=== PATIENT | female | born 1975 | race Caucasian/White ===

== ENCOUNTER 2023-09-16 18:22 | Inpatient (IN) | payer BC, SELFPAY ==
[2023-09-16] VITALS (8 sets, daily range): BP systolic 85–149; BP diastolic 64–97; BMI 28.7
[2023-09-16 14:00] LABS: % Basophils 0.4 % (0-2); % Eosinophils 1.5 % (0-6); % Immature Granulocytes 0.5 % (0-0.5); % Lymphocytes 13.5 % (20.5-51.1); % Monocytes 8.3 % (1.7-9.3); % Neutrophils 75.8 % (42.2-75.2); Absolute Eosinophils 0.2 10^3/uL (0-0.7); Absolute Immature Granulocytes 0.1 10^3/uL (0-0.05); Absolute Lymphocytes 1.5 10^3/uL (1.2-3.4); Absolute Monocytes 0.9 10^3/uL (0.1-0.6); Absolute Neutrophils 8.3 10^3/uL (1.4-6.5); Hematocrit 41.1 % (37.0-47.0); Hemoglobin 14.2 g/dL (12.0-16.0); Mean Corp Hgb Conc. 34.5 g/dL (33.0-37.0); Mean Corpuscular Hgb 34.5 pg (27.0-31.0); Mean Platelet Volume 10.8 fL (7.4-10.4); Nucleated Red Blood Cells % 0 %; Platelet Count 249 10^3/uL (130-400); Red Blood Cell Count 4.11 10^6/uL (4.20-5.40); Red Cell Dist. Width 13.9 % (11.5-14.5)
[2023-09-16 14:14] LABS: ALT (SGPT) 21 U/L (0-35); AST (SGOT) 27 U/L (14-36); Alkaline Phosphatase 72 U/L (38-126); Blood Urea Nitrogen 9 mg/dl (7-17); Calcium 8.9 mg/dl (8.4-10.2); Carbon Dioxide 27 mmol/L (22-30); Chloride 102 mmol/L (98-107); Glucose 132 mg/dl (70-99); Potassium 3.9 mmol/L (3.5-5.1); Sodium 134 mmol/L (135-145); Total Bilirubin 0.8 mg/dl (0.2-1.3); eGFR > 60.00
[2023-09-16 14:26] LABS: Troponin I 0.892 ng/ml
[2023-09-16] MEDS: NITROSTAT (SUBLINGUAL) 0.400000000000000022 MG SL (15:37)
--- NOTE | 2023-09-16 15:37 | ED.GENMED ---
History of Present Illness
General
Chief Complaint: Chest Pain
Source: patient
Time Seen by Provider: 09/16/23 15:13
Travel History
Have you had any contact with someone who has COVID-19?: No
Do you have any symptoms of coronavirus? Fever > 100 degrees, chills, cough, shortness of breath, sore throat, loss of taste or smell, muscle aches, or headache?: No
History of Present Illness
History of Present Illness:
47 year old female with past medical history of hypertension and rheumatoid arthritis who presents to ED from her primary care office with concerns for an abnormal EKG as well as chest pain that has been ongoing since 3am Thursday morning described to
be a persistent pain, aching, non-radiating waxing and waning without any specific exacerbating or alleviating factors however over the last 36 hours she notes pain now is more squeezing nature, goes in to both arms, intermittent diaphoresis and
mild nausea. Patient went to [facility] last night but after waiting for 5 hours in the waiting room decided to go home but had a follow up visit with PCP today at 8am. Patient notes a recent colonoscopy this past Thursday and she thought
her symptoms were initially related to this. She states she had 2 polyps removed. Family hx is significant for father have an NE but at unknown age. Patients social history is unremarkable. She denies any hx of smoking. No recent illnesses but notes
RSV in July
Past History
Past History
ED Past Medical History: HTN and Other (RA)
ED Past Surgical History: None
Social History
Tobacco: Non-smoker
Alcohol: Occasional
Drug: None
Personal:
Living: with family
Review of Systems
Review of Systems
All Other Systems: ROS reviewed and negative except as documented in HPI and ROS
Phy Exam
Physical Exam
Physical Exam:
GENERAL: Alert , in no apparent distress
EYE: clear conjunctiva
NECK: Supple
ENT: o/p clr, mmm.
CARDIAC: Regular rate and rhythm, no murmur .
LUNGS: Clear breath sounds bilaterally, no acute respiratory distress, no wheezes/rales/rhonchi
CHEST WALL: no tenderness to palpation
ABDOMEN: Soft, without focal tenderness, no r/g, no cvat
NEUROLOGICAL: Alert and oriented
SKIN: Warm and dry, skin intact.
MUSCULOSKELETAL: No edema, well perfused.
PSYCH: Normal and appropriate interaction.
Scores
Heart Failure Risk
Heart Failure Risk Score: Not Applicable
Heart Score for Chest Pain Patients
STEMI patient?: No
History: Moderately Suspicious
ECG: Nonspecific Repolarization
Age: >45 - <65 years
Risk Factors: 1 or 2 Risk Factors
Troponin: >/= 3 x Normal Limit
Heart Score for Chest Pain Patients: 6
Heart Score Risk: 20.3% MACE over next 6 weeks
Withdrawal Assessment of Alcohol
Withdrawal Assessment Completed?: Not applicable
Course
Orders/Labs/Results
Orders:
Orders
09/16/23 13:41
EKG [Electrocardiogram (*1)] Urgent
Reason for Study: Chest Pain
EKG- Treatment ONCE
09/16/23 13:51
C-Reactive Protein Urgent
Comment: CRP ADDED ON BY FLOOR 4:10PM 09-16-23
Complete Blood Count/With Diff Urgent
Comprehensive Metabolic Panel Urgent
Troponin I Urgent
09/16/23 Dinner
Cholesterol Lowering
At Your Request: Full Participation
Does patient need a safe tray?: No
09/16/23 15:14
Electrocardiogram (*1) Stat
Reason for Study: Other
Other Reason for Exam: chest pain
EKG- Treatment ONCE
CR Chest Portable - 1 View Urgent
Comment:
Reason For Exam: NSTEMI
Reason Study Needs to be Portable: Unable to Transport
09/16/23 15:26
Heparin 4,000 units IV NOW STA
Nitroglycerin Sublingual [Nitrostat (Sublingual)] 0.4 mg SL [id number] PRN
09/16/23 15:30
Heparin 52317 Units/250 ml 25,000 units in 250 ml IV PER PROTOCOL
Weight to be used for heparin protocol in kilograms (kg):: 66.6
Protocol:: Cardiac Tx/Acute Coronary
PTT Goal Range to be used:: PTT 73 to 111 seconds
Order type:: Initial
INITIAL Infusion Dose (UNITS/KG/hr) & then follow protocol:: 15 units/kg/hr
Infusion Dose in UNITS/hr & then follow protocol (UNITS/hr):: 1,000
INFUSION RATE in mL/hr & then follow protocol (mL/hr):: 10
PTT less than or equal to 64 seconds:: Increase rate by 200 units/hr (+ 2 mL/hr)
PTT 64.1 to 72.9 seconds:: Increase rate by 100 units/hr (+ 1 mL/hr)
PTT 73 to 111 seconds:: Target Range. No change in rate.
PTT 111.1 to 130.9 seconds:: Decrease rate by 100 units/hr (- 1 mL/hr)
PTT 131 to 199.9 seconds:: HOLD for 1 hr. Then decrease rate by 200 units/hr (- 2 mL/hr)
PTT greater than or equal to 200 seconds:: HOLD for 2 hrs & Notify Provider. Then decrease by 200 units/hr (-
2 mL/hr)
Lab follow-up:: Each change, PTT q6h until 2 consecutive are therapeutic. Then PTT
daily.
09/16/23 15:37
PTT Urgent
Prothrombin Time Urgent
09/16/23 15:47
0.9% Sodium Chloride 1000 ml [Nss] 1,000 ml IV BOLUS
09/16/23 15:50
Echo 2D MMode Color/Doppler Urgent
Reason for Study: epigastric pain, abnormal troponin
09/16/23 16:05
CT Chest Pe Study Urgent
Comment:
Reason For Exam: elevated trop, chest pain
Aspirin Chewable [Low Strength Aspirin] 324 mg PO NOW STA
09/16/23 16:09
Add On- LAB Routine
Tests Added?: crp
09/16/23 17:19
Admit/Transfer Patient As Directed
Co-Sign Provider:
Level of Care: Inpatient admission
Assign to:: IVU
Physician / Group: Richie
Diagnosis: NSTEMI
Reason for Hospitalization: heparin drip, cardiac cath
Expected length of stay greater than two midnights?: Yes
ELOS- Estimated Length of Stay in days: 3
I certify the patient meets the requirements for IP care: Yes
09/16/23 17:26
Code Status As Directed
Resuscitation Status: Full Code
09/16/23 19:05
Acetaminophen [Tylenol] 650 mg PO Q4HPRN PRN
09/16/23 19:05
Heparin Protocol- PTT Orders As Directed
PTT per Heparin protocol: -Obtain CBC and baseline PTT - if not already collected.
-Obtain PTT 6 hours from start of infusion. Then, every 6 hours until 2 consecutive
PTT's are therapeutic. Then, PTT Daily.
-With each rate change, obtain PTT every 6 hours until 2 consecutive PTT's are
therapeutic. Then, PTT Daily.
Activity As Directed
Activity Level: Out of Bed-Early Mobility
With Assistance
I&O [Intake/ Output] As Directed
Frequency: q12h
Notify MD As Directed
Notify physician if: PTT is greater than or equal to 200.
Vital Signs As Directed
Frequency: Per unit guidelines
Weight As Directed
Frequency: Daily
09/16/23 19:14
Tramadol HCl [Ultram] 37.5 mg PO DAILYPRN PRN
09/16/23 20:00
EKG [Electrocardiogram (*1)] Routine
Reason for Study: Abnormal EKG
Troponin I Q6H
Buspirone [BuSPAR] 5 mg PO BID
09/16/23 22:00
Gabapentin [Neurontin] 300 mg PO HS
Loratadine [Claritin] 10 mg PO HS
Montelukast Sodium [Singulair] 10 mg PO HS
Zolpidem Tartrate [Ambien] 10 mg PO HS
09/16/23 22:35
PTT Urgent
Nursing to Place Non Medication Order As Directed
Physician Order: PTT 6 hours after initial start of Heparin infusion
Above order entered?: Yes
09/17/23 02:00
Troponin I Q6H
09/17/23 06:00
EKG [Electrocardiogram (*1)] IN AM
Reason for Study: Abnormal EKG
NPO
Allow oral meds: Yes
Allow clear liquids: No
Basic Metabolic Panel IN AM
Complete Blood Count/No Diff IN AM
Hgba1c [Glycohemoglobin (HgbA1c)] IN AM
Lipid Profile [Cardiovascular Evaluation] IN AM
09/17/23 08:00
Aspirin Chewable [Low Strength Aspirin] 81 mg PO DAILY
09/18/23 06:00
Complete Blood Count/No Diff Q2D
Comment: notify provider: Platelet count < 130,000 or decrease by 50% from baseline
09/20/23 06:00
Complete Blood Count/No Diff Q2D
Comment: notify provider: Platelet count < 130,000 or decrease by 50% from baseline
09/22/23 06:00
Complete Blood Count/No Diff Q2D
Comment: notify provider: Platelet count < 130,000 or decrease by 50% from baseline
09/24/23 06:00
Complete Blood Count/No Diff Q2D
Comment: notify provider: Platelet count < 130,000 or decrease by 50% from baseline
09/26/23 06:00
Complete Blood Count/No Diff Q2D
Comment: notify provider: Platelet count < 130,000 or decrease by 50% from baseline
09/28/23 06:00
Complete Blood Count/No Diff Q2D
Comment: notify provider: Platelet count < 130,000 or decrease by 50% from baseline
09/30/23 06:00
Complete Blood Count/No Diff Q2D
Comment: notify provider: Platelet count < 130,000 or decrease by 50% from baseline
10/02/23 06:00
Complete Blood Count/No Diff Q2D
Comment: notify provider: Platelet count < 130,000 or decrease by 50% from baseline
Abnormal Lab Results
09/16/23 09/16/23
13:51 15:37
WBC 11.0 H 10^3/uL
(4.8-10.8)
RBC 4.11 L 10^6/uL
(4.20-5.40)
MCV 100.0 H fL
(81.0-99.0)
MCH 34.5 H pg
(27.0-31.0)
MPV 10.8 H fL
(7.4-10.4)
Abs Immat Gran (auto) 0.1 H 10^3/uL
(0-0.05)
Absolute Neuts (auto) 8.3 H 10^3/uL
(1.4-6.5)
Absolute Monos (auto) 0.9 H 10^3/uL
(0.1-0.6)
Neutrophils % 75.8 H %
(42.2-75.2)
Lymphocytes % 13.5 L %
(20.5-51.1)
APTT 23.3 L Sec
(23.4-35.0)
Sodium 134 L mmol/L
(135-145)
Glucose 132 H mg/dl
(70-99)
Troponin I 0.892 H* ng/ml
C-Reactive Protein 55.50 H mg/L
(0.0-10.00)
09/16/23 13:51
09/16/23 13:51
Vital Signs
Initial and Last Documented VS:
Initial Vital Signs
Temp Pulse Resp BP Pulse Ox
98.4 F 84 18 147/93 99
09/16/23 13:42 09/16/23 13:42 09/16/23 13:42 09/16/23 13:42 09/16/23 13:42
Last Documented Vital Signs
Temp Pulse Resp BP Pulse Ox
98.3 F 88 18 104/79 98
09/16/23 19:30 09/16/23 18:30 09/16/23 19:30 09/16/23 18:27 09/16/23 19:30
Grinding Operator consulted with Physician
Grinding Operator consulted with physician?: Yes
Name of Physician Consulted: Jaime
MDM/Problems Addressed
Differential Diagnosis Includes:
unstable angina, NSTEMI, STEMI, PE
MDM/Problems Addressed:
47F presenting to the ED from PCP office with concern for anginal symptoms. Patient EKG done in triage shows diffuse t-wave inversions in precordial leads. She notes 7/10 pain currently and labs initiated from triage reveal an elevated troponin at
greater than 0.8. Cardiology was notified and coming to the emergency department to evaluate the patient. In the meantime patient to be given sublingual nitroglycerin due to the continued 7 out of 10 pain as well as heparin bolus and drip ordered.
Holding aspirin due to patient's listed ibuprofen allergy with anaphylaxis. Coags, chest x-ray ordered.
Chronic conditions affecting care: HTN
*Pulse Oximetry
Patient hypoxic: no
*EKG
Interpreted by ED Provider?: Yes
Comparison EKG: no comparison EKG present
Heart Rate: 86
Rate: normal
Rhythm: sinus
[place]: normal axis
Ischemia: T-wave inversion (precordial leads)
*Supply Chain Coordinator Interpretation
Rate: normal
Rhythm: sinus
*Critical Care Note
Total Time (30-74mins, 75-104mins- exclusive of procedures): 35
comment:
Critical care statement: A total of 35 minutes of critical care time was provided for this patient. This includes management of unstable vital signs, evaluation of the patient at bedside, reviewing the patient's pertinent medical records, discussion
with consultants, review of old EKGs and review of pertinent medical records. This time with separate from time utilized to perform the aforementioned documented procedures
Comment
Comment:
Following 1 sublingual nitroglycerin patient's blood pressure dropped significantly. Will hold future nitroglycerin as well as gave patient 1 L IV fluids to support blood pressure. Aspirin was ordered at cardiology recommendation as she has
tolerated Pepto-Bismol in the past.
Patient Management
Discussion with other providers: Hospitalist and Public Safety Director
Escalation/DeEscalation of care consider admission/obs:
Patient was seen by cardiology and they are recommending obtaining a CTA of the chest to rule out PE. Possible myocarditis given recent RSV infection. They are ordering a stat echocardiogram. Recommend admission to hospitalist service. They are
in agreement with medications given and state it is okay to give aspirin as patient has taken Pepto-Bismol in the past. Will notify hospitalist team.
ED Attending Note
-
Portions of this chart may have been created with voice recognition software.� Occasional wrong word or��sound alike� substitutions may have occurred due to the inherent limitations of voice recognition software.
Discharge Plan
Departure
Patient Disposition: Admit
Date of Disposition: 09/16/23
Time of Disposition: 16:07
Presentation/result/management discussed w/ accepting MD/DO: Hospitalist
Discharge Problem:
Acute non-ST elevation myocardial infarction (NSTEMI)
Interventions
Interventions:
*Risk Screen - Suicide Last Done: 09/16/23 20:53
*General Assessment Last Done: 09/16/23 13:42
*Neglect/Abuse Screening Last Done: 09/16/23 13:42
ED- Fall Risk Assessment Last Done: 09/16/23 15:20
*ED COVID-19 Vaccine History Last Done: 09/16/23 20:53
*Nursing Disposition Last Done: 09/16/23 18:52
ED- Cardiac Assessment Last Done: 09/16/23 15:20
Discharge Date and Time
Discharge Date/Time: 09/16/23 18:53
[2023-09-16] MEDS: NSS 1000 IV (15:48)
[2023-09-16 15:55] LABS: INR 1.07; PT 13.8 Sec (11.4-14.6)
[2023-09-16 15:56] LABS: APTT 23.3 Sec (23.4-35.0)
--- NOTE | 2023-09-16 16:05 | CON.CAR ---
Addendum entered and electronically signed by Avinash Maravilla MD 09/16/23 16:36:
Also initial pain radiated to back, will add on lipase as well.
Addendum entered and electronically signed by Avinash Maravilla MD 09/16/23 16:34:
I saw and examined the patient.
The GLASS BREAKER note was reviewed and I agree with the note.
Comment: 47-year-old female with a past medical history of rheumatoid arthritis and hypertension presents for evaluation of several days of constant mid substernal chest pain. It is worse with deep inspiration and palpation. However, not worse
with exertion or lying flat. Of note, she had a colonoscopy on Thursday and had discomfort in her abdomen following the procedure. But then was able to go line dancing on Thursday before pain began. She does have a family history of premature
coronary artery disease in her father at 50 years old. Additionally, she had RSV in July. While NSAID allergy is listed, she takes Pepto-Bismol routinely without any issue. She took it for this issue in fact without any relief. While in the
room, she had just received nitroglycerin and began to feel acutely dizzy like she would pass out. Blood pressure dropped from 140s to 80s. She recovered by placing in Trendelenburg and giving a volume bolus. Interestingly, after nitroglycerin
her reproducible pain in the mid substernal area on initial exam improved and came from a 7-8 2 out of 10. She also reports she had not been moving around as much once the pain began. On physical exam she appears in mild distress, lungs are clear
to auscultation regular rate and rhythm no murmur rubs or gallops were appreciated. She did initially have exquisite tenderness in the xiphoid area but this improved with nitro. No abdominal tenderness. No extremity edema. EKG showed small T
wave inversions anteriorly, they did not seem deep and symmetric. Additionally, troponin was elevated at 0.892. Differential diagnosis of her symptoms remains broad. Given the pleuritic nature and significant drop in blood pressure with
nitroglycerin, PE should be considered. Given recent illness with RSV, perimyocarditis could be playing a role. Echo will be done immediately and CRP added. Remaining on the differential diagnosis is ACS. She has been started on a heparin drip
and will be given aspirin. Risk factors of family history, hypertension, and rheumatoid arthritis. She may need catheterization tomorrow if no clear etiology of symptoms. Will keep n.p.o. in that event.
Will follow.
Original Note:
Consultation
Consultation Request
Date/Time Consultation Requested: 09/16/23 153
Date/Time Consultation Performed: 09/16/23 1540
Requesting Provider: Kain PRINCE
Performing Provider: Hanh BLACKMON for Dr. Maravilla
Reason for Consultation: chest discomfort, abnormal troponin and EKG
Medical History
-
Chief Complaint: chest/abdominal pain, troponin elevation, EKG abnormality
History of Present Illness:
47 y/o female with RA and hypertension who is here for upper abdominal/chest discomfort. She had a routine colonoscopy Thursday. Then Thursday, after line-dancing, she developed upper abdominal/chest discomfort afterward. Then yesterday around 4 PM, she
also had a squeezing feeling at the top of her arms with clammy feeling. Discomfort went through to her back. Chest discomfort was pleuritic. She went to [facility] ER, but evaluation took too long and she left. She went to her PCP this AM and
EKG was abnormal and she was sent back into the ER. In the ER, on arrival, she had chest discomfort. She reports chest discomfort has been pleuritic, also worse to palpation initially. She was given nitro, which dropped her blood pressure and she
had symptomatic hypotension, which improved with Trendelenburg positioning and IV fluids. Her discomfort improved. Heparin drip was started in ER. ASA to be given now. There was initial concern since allergy to ibuprofen, but she denies any known
history of ASA allergy and regularly takes Pepto-Bismol without issue. Trop in ER 0.892. EKG with anterior t-wave inversions. Of note, patient had RSV recently.
Past Medical History
Past Medical History: HTN and Other (RA)
Social History
Tobacco: Non-Smoker
Family History
Family History: Early CAD (dad DC age 50)
Allergies / Home Medications
Allergy/AdvReac Type Severity Reaction Status Date / Time
ibuprofen Allergy Anaphylaxis Verified 09/16/23 13:41
Medication Instructions Recorded Confirmed Type
buspirone 5 mg tablet 5 mg PO BID 09/16/23 09/16/23 History
eszopiclone 2 mg tablet (Lunesta) 2 mg PO HS 09/16/23 09/16/23 History
fexofenadine 60 mg tablet (Annie 60 mg PO HS 09/16/23 09/16/23 History
Allergy)
gabapentin 300 mg capsule 300 mg PO HS 09/16/23 09/16/23 History
golimumab 50 mg/0.5 mL 50 mg SC QMONTH 09/16/23 09/16/23 History
subcutaneous pen injector (Simponi)
levonorgestrel 0.15 mg-ethinyl 1 tab PO DAILY 09/16/23 09/16/23 History
estradiol 0.03 mg tablet ([place]
28)
methotrexate sodium 2.5 mg tablet 10 mg PO TUTH 09/16/23 09/16/23 History
montelukast 10 mg tablet 10 mg PO HS 09/16/23 09/16/23 History
(Singulair)
tramadol 37.5 mg-acetaminophen 325 1 tab PO DAILYPRN PRN moderate 09/16/23 09/16/23 History
mg tablet pains
Review of Systems
-
History Source: Patient
All other systems: Negative unless noted
Cardiac: Chest Pain and Diaphoresis
Abdomen/GI: Abdominal Pain
Physical Exam
Vital Signs
Temp Pulse Resp BP Pulse Ox
98.4 F 75 14 124/67 90
09/16/23 13:42 09/16/23 15:46 09/16/23 15:46 09/16/23 15:46 09/16/23 15:46
Lab Results
09/16/23 13:51
09/16/23 13:51
Troponin I 0.892 ng/ml H* 09/16/23 13:51
Physical Exam
General: Well Developed, Well Nourished and No Apparent Distress
HEENT: Normocephalic
Respiratory: Clear and Non Labored Respirations
Cardiac: Regular Rhythm
GI: Tender (initially to touch)
Skin: Warm and Dry
Neuro: AO x 3
Psych: Calm
Impression / Plan
-
Chest/abdominal discomfort:
-initially noted with palpation, and inspiration, but then had a nitro and felt improved. Of note, nitro dropped BP significantly as noted in detail.
-check echo and CTA now
Abnormal troponin:
-etiology is not yet clear
-as above, check echo, CTA.
-heparin drip initiated while w/u being done. This requires intensive monitoring for toxicity. ASA to be given now. Continue daily.
-trend to peak. May need cath depending on above findings. Will check lipids, A1C.
RA:
-on medical therapy
HTN:
-on nebivolol as OP
-continue and monitor
Data Reviewed
-
EKG: Tracing Personally Visualized and interpreted (SR with t wave inversions anteriorly)
Radiology: Report Reviewed by me (CXR: No acute cardiopulmonary process.)
Medical Tests (Nuc Med, Echo etc): Other (ordered and pending in ER)
Labs: Labs Reviewed by me
[2023-09-16] MEDS: LOW STRENGTH ASPIRIN 324 MG PO (16:14)
[2023-09-16] MEDS: HEPARIN 4000 UNITS IV (16:34)
[2023-09-16] MEDS: HEPARIN 25000 UNITS/250 ML IV (16:35)
--- NOTE | 2023-09-16 17:31 | HPS.HSE ---
Addendum entered and electronically signed by Anthony Quiroz MD 09/16/23 18:21:
I saw and examined the patient.
The PRODUCTION MECHANIC TIN CANS or PA's note was reviewed and I agree with the note.
Comment: CVS: S1-S2 normal
Chest: CTA B/L
Abdomen: Soft, NT / Bowel sounds present
Extremities: No edema, normal pulses
RETORT FURNACE HELPER: Non focal exam
#Chest Pain with Elevated Troponin, possible NSTEMI
Positive troponin is elevated-trend
-Await PE study especially the patient is on control pills
-Continue heparin drip
-Cardiology valuation.
-If CT PE study is negative may need a cath tomorrow. N.p.o. after midnight discussed with the patient
#Essential Hypertension
-Patient developed hypotension following nitro
-Monitor BP closely
#Rheumatoid Arthritis
-Patient is maintained on methotrexate and Simponi as outpatient
#Anxiety/Insomnia
-Continue BuSpar and Lunesta
# Control use-advised patient to talk to her delicatessen department manager and come off of this
#DVT proph: Heparin drip
Discussed with family at bedside
#Code Status: Full Code
Original Note:
Family Physician
-
Family Physician: Nicolas Garza IV, MD
Chief Complaint
-
Chest Pain
History of Present Illness
Patient is an 47 y/o female past medical history of hypertension and rheumatoid arthritis who presents with chest pain. Patient reports pain started two nights ago. She states it waxes and wanes, but doesn't to have any aggravating or alleviating
factors. Last night she had an episode described a tightness across her chest and her arms. She notes with this episode she had some shortness of breath, and describes diaphoresis. She denies any similar episodes in the past. She denies any prior
history of coronary artery disease, myocardial infarction or pulmonary embolism.
Medical History
Past Medical History
Past Medical History: Reports Other
Additional Past Medical History:
Essential Hypertension
Rheumatoid Arthritis
Anxiety/Insomnia
Past Surgical History: Reports None
Social History
Tobacco: Non-smoker
Alcohol: Occasional
Family History
Family History: Other (Father: CAD with stent at 50)
Allergies / Home Medications
Allergies reflects when Allergies were last updated in [facility].
Home Medications with original date entered in [facility]
Allergy/Medication List:
Allergies
Allergy/AdvReac Type Severity Reaction Status Date / Time
ibuprofen Allergy Anaphylaxis Verified 09/16/23 13:41
Home Medications
buspirone 5 mg tablet 5 mg PO BID 09/16/23
eszopiclone 2 mg tablet (Lunesta) 2 mg PO HS 09/16/23
fexofenadine 60 mg tablet (Annie Allergy) 60 mg PO HS 09/16/23
gabapentin 300 mg capsule 300 mg PO HS 09/16/23
golimumab 50 mg/0.5 mL subcutaneous pen injector (Simponi) 50 mg SC QMONTH 09/16/23
levonorgestrel 0.15 mg-ethinyl estradiol 0.03 mg tablet ([place] 28) 1 tab PO DAILY 09/16/23
methotrexate sodium 2.5 mg tablet 10 mg PO TUTH 09/16/23
montelukast 10 mg tablet (Singulair) 10 mg PO HS 09/16/23
tramadol 37.5 mg-acetaminophen 325 mg tablet 1 tab PO DAILYPRN PRN moderate pains 09/16/23
Review of Systems
-
A 12 point ROS was completed and negative except as noted: Yes
Constitutional: Denies Fever or Chills
Respiratory: Denies Cough or Trouble Breathing
Cardiac: Denies Chest Pain or Palpitations
Physical Exam
Vital Signs
Vital Signs
Temp Pulse Resp BP Pulse Ox
98.4 F 89 19 126/71 97
09/16/23 13:42 09/16/23 16:45 09/16/23 16:45 09/16/23 16:17 09/16/23 16:45
Physical Exam
General: Comfortable and Conversant
HEENT: Anicteric and Moist mucous membranes
Respiratory: Clear and Non Labored Respirations
Cardiac: S1/S2 and Regular Rhythm
GI: Soft and Non Tender
Rectal: Deferred by Provider
Musculoskeletal: No Clubbing, No Cyanosis and No Edema
Skin: Warm and Dry
Neuro: Awake, Alert, Oriented and Nonfocal/grossly intact
Laboratory Results
-
09/16/23 13:51
09/16/23 13:51
Laboratory Results
PT 13.8 Sec (11.4-14.6) 09/16/23 15:37
INR 1.07 09/16/23 15:37
APTT 23.3 Sec (23.4-35.0) L 09/16/23 15:37
Total Bilirubin 0.8 mg/dl (0.2-1.3) 09/16/23 13:51
AST 27 U/L (14-36) 09/16/23 13:51
ALT 21 U/L (0-35) 09/16/23 13:51
Alkaline Phosphatase 72 U/L (38-126) 09/16/23 13:51
Troponin I 0.892 ng/ml H* 09/16/23 13:51
Data Reviewed
-
Diagnostic Radiology: Report Reviewed by me
Lab Data: Labs Reviewed by me
Impression/Plan
-
Chest Pain with Elevated Troponin, possible NSTEMI
-Consult Cardiology
-Await PE study
-Continue heparin drip
Essential Hypertension
-Patient developed hypotension following nitro
-Monitor BP closely
Rheumatoid Arthritis
-Patient is maintained on methotrexate and Simponi as outpatient
Anxiety/Insomnia
-Continue BuSpar and Lunesta
DVT proph: Heparin drip
Code Status: Full Code
[2023-09-16] MEDS: AMBIEN 10 MG PO (21:41)
[2023-09-16] MEDS: CLARITIN 10 MG PO (21:41)
[2023-09-16] MEDS: NEURONTIN 300 MG PO (21:42)
[2023-09-16] MEDS: SINGULAIR 10 MG PO (21:42)
[2023-09-16 22:25] LABS: APTT 53.8 Sec (23.4-35.0)
[2023-09-16 22:36] LABS: Troponin I 0.635 ng/ml
[2023-09-17] VITALS (12 sets, daily range): BP systolic 106–134; BP diastolic 52–84; BMI 28.1
--- NOTE | 2023-09-17 00:34 | PTCARENOTE ---
Received pt from ED. AOX3. Oriented to unit. at bedside. Heparin gtt infusing at 10 units/hr. EKG obtained. Pt currently has no c/o pain/discomfort. Aware of NPO status after midnight. Currently resting in bed; call geri w/in reach.
[2023-09-17 06:03] LABS: Troponin I 0.407 ng/ml
[2023-09-17 06:11] LABS: APTT 86.6 Sec (23.4-35.0)
[2023-09-17 06:29] LABS: Hematocrit 35.2 % (37.0-47.0); Hemoglobin 12.3 g/dL (12.0-16.0); Mean Corp Hgb Conc. 34.9 g/dL (33.0-37.0); Mean Corpuscular Hgb 34.7 pg (27.0-31.0); Mean Corpuscular Volume 99.4 fL (81.0-99.0); Mean Platelet Volume 11.4 fL (7.4-10.4); Platelet Count 216 10^3/uL (130-400); Red Blood Cell Count 3.54 10^6/uL (4.20-5.40); Red Cell Dist. Width 13.7 % (11.5-14.5); White Blood Cell Count 7.8 10^3/uL (4.8-10.8)
[2023-09-17 06:54] LABS: Blood Urea Nitrogen 7 mg/dl (7-17); Calcium 8.3 mg/dl (8.4-10.2); Carbon Dioxide 23 mmol/L (22-30); Chloride 108 mmol/L (98-107); Estimated Creatinine Clearance 73 ml/min; Glucose 85 mg/dl (70-99); HDL Cholesterol 59 mg/dl; LDL Cholesterol, Calculated 100 mg/dl; Potassium 4.2 mmol/L (3.5-5.1); Sodium 134 mmol/L (135-145); Total Cholesterol 180 mg/dl (50-199); Triglyceride 107 mg/dl (10-149); Very Low Density Lipoprotein 21 mg/dl (0-30); eGFR > 60.00
[2023-09-17] MEDS: LOW STRENGTH ASPIRIN 81 MG PO (07:55)
--- NOTE | 2023-09-17 08:17 | W.PN.CD ---
Today's Communication / Plan
-
cath today
add lipitor 40
continue [facility]
Impression / Plan
-
NonSTEMI:
-trop #1 0.6, then second 0.4. ECG with anterior Tw inversions
- Hx consistent with Plaque rupture Savannah michel. Went to [facility] ER, got ECG and sent out to waiting room then got upset with wait and left AMA
-ECHO showed normal LV function and no valve disease
- LDL 100. Adding Atorvastatin 40qd
- Discussed options including cath today and waiting another 24 hrs then stress. I strongly favor cath and believe it will be safer alternative to stressing soon after nonSTEMI and possibly missing a significant culprit lesion (ie false neg study).
She understands risk of cath with possible PCI and is agreeable to this plan. NPO except meds until cath today
RA:
-on medical therapy
HTN:
-on nebivolol as OP
-continue and monitor
Physical Exam
Vital Signs/Labs
Vital Signs
Temp Pulse Resp BP Pulse Ox
98.7 F 99 20 124/68 98
09/17/23 07:43 09/17/23 08:00 09/17/23 07:43 09/17/23 07:45 09/17/23 07:43
09/16/23 09/17/23 09/18/23
06:59 06:59 06:59
Actual Weight 147 lb 0.773 oz
09/17/23 05:05
09/17/23 05:05
PT 13.8 Sec (11.4-14.6) 09/16/23 15:37
INR 1.07 09/16/23 15:37
APTT 86.6 Sec (23.4-35.0) H 09/17/23 05:05
Triglycerides 107 mg/dl (10-149) 09/17/23 05:05
LDL Cholesterol, Calc 100 mg/dl 09/17/23 05:05
VLDL Cholesterol, Calc 21 mg/dl (0-30) 09/17/23 05:05
HDL Cholesterol 59 mg/dl 09/17/23 05:05
LAB Results
09/16/23 09/16/23 09/17/23
13:51 22:04 05:05
Troponin I 0.892 H* 0.635 H* 0.407 H* D
Physical Exam
Constitutional: Comfortable
Cardiovascular: Rhythm & rate is regular and Murmur/rub/gallop absent
Respiratory: Respiratory effort normal and Lungs clear to auscul.
GI: Soft
Neuro/Psych: AO x 3 and Motor deficits absent
Data Reviewed
-
Date of Service: September 17, 2023
[2023-09-17 09:11] LABS: Glycohemoglobin (HgbA1c) 5.2 % (4.0-5.6)
--- NOTE | 2023-09-17 10:16 | W.PN.HOSP.TC ---
Today's Communication/Plan
-
MRI of the liver
Today
Restart beta-blockers
Assessment / Plan
Assessment / Plan
47 y/o with chest pain
CVS: S1-S2 normal
Chest: CTA B/L
Abdomen: Soft, No RUQ tenderness,Bowel sounds present
Extremities: No edema, normal pulses
VOICE OVER ANNOUNCER: Non focal exam
CT of the chest-no PE no pneumonia no aneurysm. Incidental small hepatic mass uncertain if this represents a mass of increased attenuation or early enhancement likely benign recommend nonemergent MRI
#Chest Pain with Elevated Troponin, NSTEMI
Positive troponin -trending down
-PE study neg for PE
-Continue heparin drip
-Cath today
# Macrocytosis-check B12 and folate level
#Essential Hypertension
-Restart nebivolol
#Rheumatoid Arthritis
-Patient is maintained on methotrexate and Simponi as outpatient
#Anxiety/Insomnia
-Continue BuSpar and Lunesta
# control use-advised patient to talk to her robotic machine tender production and come off of this
#DVT proph: Heparin drip
D/W rn
Anticipated Discharge: Within 24 hours
Subjective/Interval History
-
Date of Service: September 17, 2023
Objective Data
-
Labs:
Laboratory Results
09/16/23 09/17/23 09/17/23
22:04 05:05 11:00
WBC 7.8
Hgb 12.3
Hct 35.2 L
Plt Count 216
APTT 53.8 H 86.6 H Pending
Sodium 134 L
Potassium 4.2
Chloride 108 H
Carbon Dioxide 23
BUN 7
Creatinine 0.8
Glucose 85
Calcium 8.3 L
Vital Signs:
Vital Signs
Temp Pulse Resp BP Pulse Ox
98.7 F 99 20 124/68 98
09/17/23 07:43 09/17/23 08:00 09/17/23 07:43 09/17/23 07:45 09/17/23 07:43
I&O
09/16/23 09/17/23 09/18/23
06:59 06:59 06:59
Intake Total 372 / 372
Balance 372 / 372
[2023-09-17 11:29] LABS: Vitamin D, 25-OH*** 65.9 ng/mL (30-80)
--- NOTE | 2023-09-17 12:11 | CM ---
CM following for DC planning needs.
Met w/ patient at bedside to complete initial assessment.
Pt. reports that she resides w/ spouse in a private home. Functionally, pt. is indep. at baseline w/ ADLs, mobility without use of any assisted device.
Pt. has Rx plan and uses [facility] in [place] or [facility] (for mail order).
Anticipated DC plan is for home, no needs.
Will follow closely for DC planning needs.
[2023-09-17 12:18] LABS: Folate 3.9 ng/ml (2.76-20); Vitamin B12 417 pg/ml (239-931)
[2023-09-17] MEDS: NSS 200 ML IV (12:52)
--- NOTE | 2023-09-17 14:30 | ITS.CL.CATH ---
Manager Corporate Responsibility - Catheterization
Cardiac Catheterization
Procedure Report:
CARDIAC CATHETERIZATION REPORT
Date of Procedure: 09/17/2023
Referring: Bret Grimm M.D.
INDICATION: Elevated troponin, concern for non-ST elevation myocardial infarction.
PROCEDURE:
1. Left heart catheterization.
2. Coronary angiography.
3. Left ventriculography.
ACCESS:
6 Bulgarian right radial artery.
CATHETERS:
1. 5 Bulgarian JR4.
2. 5 Bulgarian JL 3.5.
3. 5 Bulgarian angled pigtail.
HEMODYNAMIC DATA
Weight (kg): 66.7
AO (s/d/x, mmHg): 128/86/106
LV (s/x mmHg): 130/6
LEFT VENTRICULOGRAPHY: Performed in an CALERO projection. Normal left ventricular size with normal to hyperdynamic systolic function. Left ventricular ejection fraction estimated at 70%. There is PVC induced mitral regurgitation but no significant
mitral regurgitation with sinus beats. There is no aortic valve insufficiency. The aortic root, ascending aorta, descending thoracic aorta and visualized aortic arch appear normal.
CORONARY ANGIOGRAPHY
Dominance: Left.
Left Main: Normal size, bifurcating vessel. There is no coronary artery disease.
LAD: Normal size vessel giving rise to 1 significant diagonal which arises very high off of the LAD. There is no coronary artery disease.
Ramus: Congenitally absent.
Circumflex: Large size, dominant vessel giving rise to 2 obtuse marginals followed by left posterolateral branch finally terminating as an L PDA. There is no coronary artery disease.
RCA: Small size, nondominant vessel. There is no coronary artery disease.
INTERVENTION(S)
None.
Closure Device: Vascular band.
Radiation (mGy): 241.55
DAP (cm2.Gy): 16.4122
Fluoroscopy time (minutes): 3.2
Sedation time (minutes): 33
CONCLUSIONS
1. Left dominant circulation with no coronary artery disease.
2. Normal filling pressures (LVEDP = 6 mmHg at 66.7 kg).
3. Normal to hyperdynamic left ventricular function. LV ejection fraction estimated at 70%.
4. Moderate to severe radial artery spasm. The patient also suffers from migraine headaches. Given her arteria spasm and other vascular beds, the patient may be suffering from myocardial endothelial dysfunction which could explain her symptoms as
well as her low-level troponin elevations in the absence of epicardial coronary disease.
RECOMMENDATIONS:
1. Expectant management after cardiac catheterization via right radial approach.
2. Limited weight bearing on the right wrist for one week.
3. Treatment of endothelial dysfunction with antihypertensives, specifically calcium channel blockers and long-acting nitrates as indicated.
Copy to: Bret Grimm M.D., Alka Maravilla M.D., Nicolas Garza IV, M.D.
Kade Cheek DO, FACC, FACP
--- NOTE | 2023-09-17 14:55 | PTCARENOTE ---
received pt from recovery area. right radial site CDI. educated on restrictions. no complaints of pain or discomfort. Call nevarez within reach.
--- NOTE | 2023-09-17 15:00 | PTCARENOTE ---
Vital signs downloaded for previous RN
[2023-09-17] MEDS: ULTRAM 37.5 MG PO ×2 (16:18→20:42)
[2023-09-17] MEDS: LIPITOR 40 MG PO (16:18)
--- NOTE | 2023-09-17 16:21 | PTCARENOTE ---
Attempt made to take air out of radial Band, pt however started bleeding. Air placed back in, and bleeding stopped. Pt with excellent radial pulse. Complaining of pain in entire RT arm. Skin pink and warm no edema appreciated. Tramadol
administered will monitor.
--- NOTE | 2023-09-17 17:26 | PTCARENOTE ---
Continues to complain of RT arm pain. States tramadol does is not working. Pt irritated with RN. 3 ML air removed from Radial band at this time in hopes it will lessen pain. Pts in room and also irritated with nursing. Dr Cheek called
and requested to come see patient. Awaiting MD
[2023-09-17] MEDS: NORVASC 5 MG PO (17:40)
--- NOTE | 2023-09-17 17:47 | PTCARENOTE ---
Rt radial Band removed at this time. No bleeding noted. Dressing placed. Pt states some relief in pain after band off. Dr Cheek at bedside . Will monitor.
[2023-09-17] MEDS: CLARITIN 10 MG PO (22:12)
[2023-09-17] MEDS: BYSTOLIC 5 MG PO (22:13)
[2023-09-17] MEDS: AMBIEN 10 MG PO (22:13)
[2023-09-17] MEDS: SINGULAIR 10 MG PO (22:13)
[2023-09-17] MEDS: NEURONTIN 300 MG PO (22:13)
[2023-09-17] MEDS: TYLENOL 325 MG PO (22:18)
--- NOTE | 2023-09-17 23:47 | PTCARENOTE ---
Received pt at handoff. Tele- SR. Assessment noted as documented. R radial dressing c/d/i w/ positive pulses. C/o R wrist pain rating 6/10. Pt states taking Ultram 37.5mg PRN at home for pain. Ultram q4 PRN ordered and administered. Pt given warm
compress for R wrist. Currently in bed; call nevarez w/in reach.
[2023-09-18 04:48] VITALS: BP 105/48
[2023-09-18 04:56] VITALS: BMI 28.2
[2023-09-18 05:06] LABS: Hematocrit 35.4 % (37.0-47.0); Hemoglobin 12.5 g/dL (12.0-16.0); Mean Corp Hgb Conc. 35.3 g/dL (33.0-37.0); Mean Corpuscular Hgb 35.3 pg (27.0-31.0); Mean Platelet Volume 10.7 fL (7.4-10.4); Platelet Count 224 10^3/uL (130-400); Red Blood Cell Count 3.54 10^6/uL (4.20-5.40); Red Cell Dist. Width 13.3 % (11.5-14.5); White Blood Cell Count 8.9 10^3/uL (4.8-10.8)
[2023-09-18 05:31] LABS: Blood Urea Nitrogen 8 mg/dl (7-17); Calcium 8.2 mg/dl (8.4-10.2); Carbon Dioxide 23 mmol/L (22-30); Chloride 107 mmol/L (98-107); Estimated Creatinine Clearance 83 ml/min; Glucose 92 mg/dl (70-99); Potassium 4.4 mmol/L (3.5-5.1); Sodium 134 mmol/L (135-145); eGFR > 60.00
[2023-09-18 07:38] VITALS: BP 113/57
[2023-09-18] MEDS: ULTRAM 37.5 MG PO (07:40)
[2023-09-18] MEDS: NORVASC 5 MG PO (07:40)
[2023-09-18] MEDS: LOW STRENGTH ASPIRIN 81 MG PO (07:40)
[2023-09-18] MEDS: FLUSH (NSS) 1 FLUSH IV (07:41)
--- NOTE | 2023-09-18 07:49 | PTCARENOTE ---
The patient is refusing to get her MRI of the abdomen done. She stated that she 'canceled that yesterday'. She said that she doesn't want to get it done in here. In addition, she complained of a headache, a 7/10 on scale. She states that it's due
to the Lipitor. I medicated her with Tramadol as ordered.
--- NOTE | 2023-09-18 10:09 | W.PN.CD ---
Today's Communication / Plan
-
-Will discontinue atorvastatin (patient gets migraines with them).
-Continue amlodipine and nebivolol.
-Telemetry stable.
Impression / Plan
-
Elevated cardiac troponin: Secondary to type II [place] in the setting of coronary vasospasm.
-No CAD on cardiac catheterization.
-Will discontinue atorvastatin (patient gets migraines with them).
-ECHO showed normal LV function and no valve disease.
-Continue amlodipine and nebivolol.
-Telemetry stable.
RA:
-on medical therapy
HTN:
-Controlled.
-Continue amlodipine and nebivolol.
Physical Exam
Vital Signs/Labs
Vital Signs
Temp Pulse Resp BP Pulse Ox
97.6 F 78 16 113/57 97
09/18/23 07:37 09/18/23 07:38 09/18/23 07:37 09/18/23 07:38 09/18/23 07:38
09/17/23 09/18/23 09/19/23
06:59 06:59 06:59
Actual Weight 65.2 kg 65.6 kg
09/18/23 04:54
09/18/23 04:54
PT 13.8 Sec (11.4-14.6) 09/16/23 15:37
INR 1.07 09/16/23 15:37
APTT Cancelled 09/17/23 19:00
Triglycerides 107 mg/dl (10-149) 09/17/23 05:05
LDL Cholesterol, Calc 100 mg/dl 09/17/23 05:05
VLDL Cholesterol, Calc 21 mg/dl (0-30) 09/17/23 05:05
HDL Cholesterol 59 mg/dl 09/17/23 05:05
LAB Results
09/16/23 09/16/23 09/17/23
13:51 22:04 05:05
Troponin I 0.892 H* 0.635 H* 0.407 H* D
Physical Exam
Constitutional: No acute distress and Comfortable
EENT: Anicteric
Cardiovascular: Rhythm & rate is regular, Pedal edema is absent, Systolic murmur absent and S1S2 is normal
Respiratory: Respiratory effort normal
GI: Soft
Neuro/Psych: AO x 3
Other: Skin (warm, dry, intact)
Data Reviewed
-
Date of Service: September 18, 2023
EKG: Tracing Personally Visualized and interpreted (Telemetry: Sinus rhythm)
Medical Tests (PFT, Pathology etc): Report Reviewed by me (Cardiac cath: No CAD) and Discussed with Patient
Labs: Labs Reviewed by me
--- NOTE | 2023-09-18 10:42 | W.PN.HOSP.TC ---
Addendum entered and electronically signed by Anthony Quiroz MD 09/18/23 16:34:
Head ache gone
will discharge
Discharge time 35 min
Dictation- [id number]
Addendum entered and electronically signed by Anthony Quiroz MD 09/18/23 10:50:
Type II ME Per cardiology
Patient has this liver lesion for which I have ordered an MRI with and without contrast however patient states that she is claustrophobic and does not want to go through MRI in the hospital. She is aware that this is very important to complete and
she will complete this as outpatient. She will talk to her primary physician and get this done.
Stop atorvastatin.
Discussed with cardiology
D/W RN
If head ache better will discharge
Original Note:
Today's Communication/Plan
-
Treat Migraine
Add on Mag level
Await cards eval
Assessment / Plan
Assessment / Plan
47 y/o with chest pain
Has a head ache today. Says she always gets migraine with Statin.
CVS: S1-S2 normal
Chest: CTA B/L
Abdomen: Soft, No RUQ tenderness,Bowel sounds present
Extremities: No edema, normal pulses
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
CT of the chest-no PE no pneumonia no aneurysm. Incidental small hepatic mass uncertain if this represents a mass of increased attenuation or early enhancement likely benign recommend nonemergent MRI
#Chest Pain with Elevated Troponin, NSTEMI
Positive troponin -trending down
-PE study neg for PE
-Cath with out obstruction.
-Likely vessel spasm- CCB started
#Macrocytosis-check B12 and folate -Normal
#Essential Hypertension
-Nebivolol and CCB
#Rheumatoid Arthritis
-Patient is maintained on methotrexate and Simponi as outpatient
#Anxiety/Insomnia
-Continue BuSpar and Lunesta
#Migraines-Try Compazine, Tylenol and Benadryl now
# control use-advised patient to talk to her communications project lead and come off of this
#DVT proph:
D/W rn
Anticipated Discharge: Today
Subjective/Interval History
-
Date of Service: September 18, 2023
Objective Data
-
Labs:
Laboratory Results
09/17/23 09/18/23
19:00 04:54
WBC 8.9
Hgb 12.5
Hct 35.4 L
Plt Count 224
APTT Cancelled
Sodium 134 L
Potassium 4.4
Chloride 107
Carbon Dioxide 23
BUN 8
Creatinine 0.7
Glucose 92
Calcium 8.2 L
Vital Signs:
Vital Signs
Temp Pulse Resp BP Pulse Ox
97.6 F 78 16 113/57 97
09/18/23 07:37 09/18/23 07:38 09/18/23 07:37 09/18/23 07:38 09/18/23 07:38
I&O
09/17/23 09/18/23 09/19/23
06:59 06:59 06:59
Intake Total 372 / 372 360 / 360
Balance 372 / 372 360 / 360
[2023-09-18] MEDS: TYLENOL 1000 MG PO (11:14)
[2023-09-18] MEDS: BENADRYL 25 MG PO (11:14)
[2023-09-18] MEDS: COMPAZINE 10 MG IV (11:14)
[2023-09-18] MEDS: FLUSH (NSS) 2 FLUSH IV (11:14)
[2023-09-18 12:18] VITALS: BP 114/66
[2023-09-18 12:42] LABS: Magnesium 2.2 mg/dl (1.6-2.3)
--- NOTE | 2023-09-18 12:49 | PTCARENOTE ---
The patient had complained of a headache this morning. Tramadol was given at 0740 for her headache of a 7/10 on scale. Her 1 hour post pain assessment reveled her headache decreased to a 6/10 on scale. At that time she stated that she was nauseous
and asked if the doctor ordered her Compazine. No ordered was noted. I gave her bernie latha and contacted Dr. Quiroz. An order for stat Tylenol 1000mg PO, Benadryl 25mg PO, and 5mg of IV Compazine was ordered and given. One hour after I gave her
those medications, she stated that her headache was now down to a 2/10 on scale and that she had felt much better.
[2023-09-18 15:15] VITALS: BP 113/59
--- NOTE | 2023-09-18 16:34 | W.DS.TRANS ---
DC Summary - Human Services Supervisor
-
Discharge Instructions:
Discharge Diagnosis/Procedures Cardiac cath, Chest pain, Type 2 [place],
hypertension, rheumatoid arthritis, incidental
small hepatic mass
Diet Low Cholesterol,2 Gram Sodium
Activity As tolerated
Driving Restrictions As prior to admission
Instructions:
Stand-Alone Forms: DC Instructions- Cath/EP Lab
Changes to Home Medications: Yes
Discharge Medications:
DC Medications w/original date entered in [facility]
buspirone 5 mg tablet 5 mg PO BID Mental Health/Anxiety 09/16/23
eszopiclone 2 mg tablet (Lunesta) 2 mg PO HS Sleep 09/16/23
fexofenadine 60 mg tablet (Annie Allergy) 60 mg PO HS Allergies 09/16/23
gabapentin 300 mg capsule 300 mg PO HS Neurological Condition 09/16/23
golimumab 50 mg/0.5 mL subcutaneous pen injector (Simponi) 50 mg SC QMONTH Autoimmune Disorder 09/16/23
levonorgestrel 0.15 mg-ethinyl estradiol 0.03 mg tablet (Macy 28) 1 tab PO DAILY Hormonal Agent 09/16/23
montelukast 10 mg tablet (Singulair) 10 mg PO HS Allergies 09/16/23
nebivolol 5 mg tablet 5 mg PO HS Blood Pressure 09/16/23
tramadol 37.5 mg-acetaminophen 325 mg tablet 1 tab PO DAILYPRN PRN moderate pains 09/16/23
amlodipine 5 mg tablet 5 mg PO DAILY Blood pressure #30 tabs 09/18/23
aspirin 81 mg chewable tablet (Children's Aspirin) 81 mg PO DAILY Blood clot prevention/tx #0 tabs 09/18/23
methotrexate sodium 2.5 mg tablet 10 mg PO TUTH RA #0 tabs 09/18/23
Home Medication Changes
new
amlodipine 5 mg tablet 5 mg PO DAILY Blood pressure #30 tabs 09/18/23
aspirin 81 mg chewable tablet (Children's Aspirin) 81 mg PO DAILY Blood clot prevention/tx #0 tabs 09/18/23
Pending Results: No
== END 2023-09-18 18:23 | disposition home or self-care (01) | DRG 282 ==
LOC: IVU 18:22
PROVIDERS: Internal Medicine Cardiovascular Disease; Nurse Practitioner; Nurse Practitioner Adult Health; Physician Assistant Medical; ADMITTING PHYSICIAN Hospitalist; EMERGENCY PHYSICIAN Emergency Medicine; FAMILY PHYSICIAN Family Medicine; OTHER PHYSICIAN Internal Medicine Cardiovascular Disease
PROC: B2111ZZ Fluoroscopy of Multiple Coronary Arteries using Low Osmolar Contrast (ICD-10-PCS; 2023-09-17)
PROC: B2151ZZ Fluoroscopy of Left Heart using Low Osmolar Contrast (ICD-10-PCS; 2023-09-17)
PROC: 4A023N7 Measurement of Cardiac Sampling and Pressure, Left Heart, Percutaneous Approach (ICD-10-PCS; 2023-09-17)
DX: I21.A1 Myocardial infarction type 2 (principal); R07.9 Chest pain, unspecified; I10 Essential (primary) hypertension; M06.9 Rheumatoid arthritis, unspecified; I95.9 Hypotension, unspecified; F40.240 Claustrophobia; G47.00 Insomnia, unspecified; G43.909 Migraine, unspecified, not intractable, without status migrainosus; R16.0 Hepatomegaly, not elsewhere classified; Z82.49 Family history of ischemic heart disease and other diseases of the circulatory system; Z88.6 Allergy status to analgesic agent
CPT/HCPCS: 33208; 71045; 71275; 80048; 80053; 80061; 82306; 82607; 82746; 83036; 83735; 84484; 85025; 85027; 85610; 85730; 86140; 93005; 93306; 93458; 96361; 96365; 96366; 99291; C1769; C1892; C1894; Q9967